=== PATIENT | male | born 1990 | race Caucasian/White ===

== ENCOUNTER 2021-06-25 09:39 | Emergency (ER) | payer SELFPAY | END 2021-06-25 10:13 | disposition home or self-care (01) | LOC: BURERS 09:39 | DX: A60.01 Herpesviral infection of penis (principal) | CPT/HCPCS: 99283 ==

== ENCOUNTER 2022-04-07 11:11 | Emergency (ER) | payer SELFPAY ==
[2022-04-07] MEDS ORDERED: Hydrocortisone Sod Succ/PF 100 mg/2 ml Vial ONE (11:28)
== END 2022-04-07 11:43 | disposition home or self-care (01) ==
LOC: BURERS 11:11
DX: L23.7 Allergic contact dermatitis due to plants, except food (principal); F17.220 Nicotine dependence, chewing tobacco, uncomplicated
CPT/HCPCS: 96372; 99282; J1720

== ENCOUNTER 2022-05-11 20:49 | Emergency (ER) | payer SELFPAY ==
[2022-05-11] MEDS ORDERED: Tetracaine 0.5% PF 4 ML BOT ONE (20:59)
[2022-05-11] MEDS ORDERED: Fluorescein Opthalmic Strip ONE ×2 (20:59→21:08)
[2022-05-11] MEDS ORDERED: Boostrix 0.5 ML (Tdap) VIAL ONE (21:08)
[2022-05-11] MEDS ORDERED: Gentamicin Ophth Soln 0.3% 5 ml Bottle ONE (21:19)
== END 2022-05-11 21:29 | disposition home or self-care (01) ==
LOC: BURERS 20:49
DX: T15.02XA Foreign body in cornea, left eye, initial encounter (principal); F17.200 Nicotine dependence, unspecified, uncomplicated; X58.XXXA Exposure to other specified factors, initial encounter; Z23 Encounter for immunization
CPT/HCPCS: 90471; 90715; 99283

== ENCOUNTER 2022-05-25 18:01 | Emergency (ER) | payer SELFPAY ==
[2022-05-25] MEDS ORDERED: Fluorescein Opthalmic Strip ONE (18:07)
[2022-05-25] MEDS ORDERED: Tetracaine 0.5% PF 4 ML BOT ONE (18:07)
[2022-05-25] MEDS ORDERED: Ketorolac Tromethamine 30 MG/ML VIAL ONE (18:17)
[2022-05-25] MEDS ORDERED: Erythromycin Base 0.5% Ophth Oint 3.5 gm Tube ONE (20:14)
[2022-05-25] MEDS ORDERED: Gentamicin Ophth Soln 0.3% 5 ml Bottle ONE (20:23)
== END 2022-05-25 20:27 | disposition home or self-care (01) ==
LOC: BURERS 18:01
DX: S05.02XA Injury of conjunctiva and corneal abrasion without foreign body, left eye, initial encounter (principal); S05.01XA Injury of conjunctiva and corneal abrasion without foreign body, right eye, initial encounter; F17.200 Nicotine dependence, unspecified, uncomplicated; X58.XXXA Exposure to other specified factors, initial encounter
CPT/HCPCS: 96372; 99283; J1885

== ENCOUNTER 2022-07-17 07:01 | Emergency (ER) | payer SELFPAY ==
[2022-07-17] MEDS ORDERED: Ibuprofen 800 MG TAB ONE (07:45)
== END 2022-07-17 08:05 | disposition home or self-care (01) ==
LOC: BURERS 07:01
DX: U07.1 COVID-19 (principal); F17.200 Nicotine dependence, unspecified, uncomplicated
CPT/HCPCS: 87804; 99283; U0003; U0005

== ENCOUNTER 2023-02-01 10:22 | Emergency (ER) | payer SELFPAY ==
[2023-02-01] MEDS ORDERED: Cephalexin 250 MG CAP ONE (10:50)
[2023-02-01] MEDS ORDERED: predniSONE 20 MG TAB ONE (10:50)
== END 2023-02-01 10:54 | disposition home or self-care (01) ==
LOC: BURERS 10:22
DX: T63.461A Toxic effect of venom of wasps, accidental (unintentional), initial encounter (principal); L08.9 Local infection of the skin and subcutaneous tissue, unspecified
CPT/HCPCS: 99282; J7512

== ENCOUNTER 2023-07-07 20:20 | Emergency (ER) | payer SELFPAY ==
[2023-07-07] MEDS ORDERED: Tetracaine 0.5% PF 4 ML BOT ONE (20:25)
== END 2023-07-07 20:56 | disposition home or self-care (01) ==
LOC: BURERS 20:20
DX: H01.9 Unspecified inflammation of eyelid (principal)
CPT/HCPCS: 99282

== ENCOUNTER 2024-11-04 01:40 | Emergency (ER) | payer SELFPAY ==
[2024-11-04] MEDS ORDERED: Tetracaine 0.5% PF 4 ML BOT ONE (02:08)
[2024-11-04] MEDS ORDERED: Fluorescein Opthalmic Strip ONE (02:09)
== END 2024-11-04 02:36 | disposition home or self-care (01) ==
LOC: BURERS 01:40
DX: H16.133 Photokeratitis, bilateral (principal); F17.200 Nicotine dependence, unspecified, uncomplicated
CPT/HCPCS: 99283